=== PATIENT | female | born 2000 | race Caucasian/White ===

== ENCOUNTER 2024-05-04 12:52 | Emergency (ER) | payer SELFPAY ==
[2024-05-04 12:57] VITALS: BP 122/89; PULSE 90; RESP 14; TEMP 37.1; O2SAT 96; BMI 29.2
--- NOTE | 2024-05-04 13:25 | ED_ITS ---
HPI - Back Pain/Injury 2 General: Chief Complaint: Back Pain/Injury Stated Complaint: abd pain, vomitting blood Time Seen by Provider: 05/04/24 13:09 Source: patient Mode of arrival: ambulatory Limitations: no limitations History of Present Illness: This patient presents to the emergency department because of mid back pain and ache he is. 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 She has undergone a couple of procedures as a child went up having indwelling Reyes for period time and then a urostomy and now has a suprapubic indwelling catheter that she uses for emptying her bladder when she feels that full. She denies any associated fevers today or in the last couple days but has had subjective chills. He states that the symptoms feel like that which she has had in the past when she has had kidney related infection. She is also had some mild congestion and cold symptoms. She states she has been not been successful in eating or drinking because she becomes nauseated when she attempts to do so. She denies any associated abdominal pain. She denies any recent travel, recent antibiotic use, history of food intolerance etc. Had no associated back injury lifting etc. Similar Symptoms Previously: Yes Quality: dull and aching Exacerbating factors: none Associated symptoms: Reports chills, nausea and vomiting; Deny abdominal pain or fever(s) Review of Systems 2 Const: Reports: chills and body aches; Denies: fever(s) Eyes: Denies: change in vision ENMT: Reports: nasal congestion; Denies: throat pain or odynophagia Card: Denies: chest pain Resp: Denies: dyspnea, productive cough or non-productive cough GI: Reports: nausea and vomiting; Denies: abdominal pain or diarrhea : Reports: flank pain Musc: Reports: back pain Skin/Breast: Denies: rash Neuro: Denies: headache(s), numbness in extremities or weakness in extremities Physical Exam 2 Narrative: EXAM NARRATIVE: She is alert and appears to be in no acute distress. He answers questions in a goal-directed fashion. Const: COMMON NORMALS: no acute distress, average body habitus, patient oriented x3 and healthy appearing GENERAL APPEARANCE: cooperative and comfortable HENMT: COMMON NORMALS: normocephalic, Normal nasal mucous membranes and turbinates present, moist oral mucous membranes and oropharynx normal HEAD & SCALP: normocephalic NOSE: Normal nasal mucous membranes and turbinates present Eye: COMMON NORMALS: Equal, round and reactive pupils present, EOMs intact bilaterally and conjunctivae normal CONJUNCTIVA: Yes conjunctivae normal P UPIL: Yes Equal, round and reactive pupils present Neck/C-Spine: COMMON NORMALS: full ROM, no lymphadenopathy and supple Chest: COMMONS NORMALS: normal inspection of the chest Resp: COMMON NORMALS: normal respiratory effort, No retractions and clear to auscultation bilaterally AUSCULTATION: clear to auscultation bilaterally Cardio: COMMON NORMALS: regular rate, regular rhythm, No murmurs present (Cardio) and Peripheral pulses 2+ throughout RATE: regular rate RHYTHM: r egular rhythm PERIPHERAL PULSES: Peripheral pulses 2+ throughout GI: COMMON NORMALS: Normal to inspection, nondistended, normoactive bowel sounds present, Soft to palpation, non-tender and no masses PALPATION: Yes Soft to palpation OTHER: She has a indwelling catheter placed infraumbilically. No erythema drainage etc. : BLADDER/KIDNEY EXAM: Yes CVA tenderness (Right greater than left) Back/Pelvis: COMMON NORMALS: thoracic and lumbar spine normal to inspection GENERAL BACK: Yes CVA tenderness (Right greater than left) Extremity: COMMON NORMALS: normal to inspection, full ROM and capillary refill normal Neuro: COMMON NORMALS: patient oriented x3, moves all extremities and no focal motor deficits Psych: COMMON NORMALS: mental status grossly normal and cooperative Skin: COMMON NORMALS: no rashes or lesions noted, no wounds and turgor normal GENERAL SKIN EXAM: no rashes or lesions noted and turgor normal Course 2 Reevaluation(s): Reevaluation #1: Patient's doing well. No new or focal findings. We discussed her current findings and suggestion that likely lower urinary tract infections the etiology to her current presentation. She also has a slight bump in her transaminases but I do not have any compared tors at this time. We discussed expected course and return precautions. Time: 16:57 Vital Signs: Vital signs: Vital Signs Temperature 98.8 F 05/04/24 12:57 Pulse Rate 94 05/04/24 15:31 Respiratory Rate 14 05/04/24 12:57 Blood Pressure 116/80 05/04/24 15:31 Pulse Oximetry 100 05/04/24 15:31 Oxygen Delivery Me thod Room Air 05/04/24 12:57 MDM - Back Pain/Injury Medical Decision Making This patient with a known history of past urinary tract infections with perturbations and normal anatomy requiring multiple procedures in the past with her urinary excretion being maintained by a indwelling suprapubic catheter that she empties as needed. Had back pain and malaise and other subjective feelings suggestive of urinary tract infection. Clinical exam was nonfocal and unrevealing for any obvious signs of serious illness. Differential included possible urinary tract infection as the likely cause given her history and clinical exam which makes a musculoskeletal etiology unlikely. She has had no history of nephrolithiasis and she is not having colicky pain suggestive of that condition. Urinalysis did reveal evidence of infection. She has preserved renal function. She received a loading dose of Rocephin in the emergency department and will plan on continuing antibiotics for 1 week. We discussed return precautions and close follow-up. She voiced understanding. Labs I reviewed the patient's lab results. 05/04/24 14:25 05/04/24 14:25 Laboratory Results WBC 6.45 10^3/uL (3.29-11.43) 05/04/24 14:25 RBC 4.42 10^6/uL (3.85-5.65) 05/04/24 14:25 Hgb 12.70 g/dL (11.27-16.99) 05/04/24 14:25 Hct 38.3 % (36-47) 05/04/24 14:25 MCV 86.7 fl (85-98) 05/04/24 14:25 MCH 28.7 pg (27-33) 05/04/24 14:25 MCHC 33.2 g/dL (30-55) 05/04/24 14:25 RDW 13.3 % (12.1-15.1) 05/04/24 14:25 Plt Count 252 10^3/cmm (157-399) 05/04/24 14:25 MPV 9.8 fL (7.4-10.4) 05/04/24 14:25 Neut % (Auto) 62.1 % 05/04/24 14:25 Lymph % (Auto) 22.2 % 05/04/24 14:25 Reagan % (Auto) 13.8 % 05/04/24 14:25 Eos % (Auto) 0.9 % 05/04/24 14:25 Baso % (Auto) 0.8 % 05/04/24 14:25 Neut # (Auto) 4.01 10^3/uL (1.8-7.7) 05/04/24 14:25 Lymph # (Auto) 1.4 10^3/uL (0.8-4.8) 05/04/24 14:25 Reagan # (Auto) 0.9 10^3/uL (0.2-0.9) 05/04/24 14:25 Eos # (Auto) 0.1 10^3/uL (0.0-0.8) 05/04/24 14:25 Baso # (Auto) 0.1 10^3/uL (0.0-0.1) 05/04/24 14:25 Nucleated RBC % (auto) 0 % 05/04/24 14:25 Nucleated RBCs # 0.0 /100WBC 05/04/24 14:25 Sodium 135 mmol/L (136-145) L 05/04/24 14:25 Potassium 3.7 mmol/L (3.5-5.1) 05/04/24 14:25 Chloride 101 mmol/L (98-107) 05/04/24 14:25 Carbon Dioxide 23 mmol/L (22-29) 05/04/24 14:25 Anion Gap 14.7 (5-19) 05/04/24 14:25 BUN 7 mg/dL (6-20) 05/04/24 14:25 Creatinine 0.5 mg/dL (0.5-0.9) 05/04/24 14:25 GFR Calculation 150.3 mL/min (90-130) H 05/04/24 14:25 Glucose 84 mg/dL (65-115) 05/04/24 14:25 Calculated Osmolality 277 mOsm/kg (285-295) L 05/04/24 14:25 Calcium 9.2 mg/dL (8.5-10.5) 05/04/24 14:25 Total Bilirubin 0.3 mg/dL (0.15-1.2) 05/04/24 14:25 AST 29 U/L (0-32) 05/04/24 14:25 ALT 49 U/L (0-33) H 05/04/24 14:25 Alkaline Phosphatase 109 U/L (35-105) H 05/04/24 14:25 Total Protein 7.5 g/dL (6.6-8.7) 05/04/24 14:25 Albumin 4.3 g/dL (3.5-5.2) 05/04/24 14:25 Globulin 3.2 g/dL (1.3-4.6) 05/04/24 14:25 Lipase 22 U/L (13-60) 05/04/24 14:25 HCG, Qual Negative (Negative) 05/04/24 13:46 Urine Color Yellow (Yellow) 05/04/24 13:46 Urine Appearance Slightly cloudy (CLEAR) 05/04/24 13:46 Urine pH 7 (5-7) 05/04/24 13:46 Ur Specific Blanchard 1.005 (1.005-1.030) 05/04/24 13:46 Urine Protein 1+ (Negative) H 05/04/24 13:46 Urine Glucose (UA) Norm (Normal) 05/04/24 13:46 Urine Ketones 1+ (Negative) H 05/04/24 13:46 Urine Blood 2+ (Negative) H 05/04/24 13:46 Urine Nitrate Negative (Negative) 05/04/24 13:46 Urine Bilirubin Neg (Negative) 05/04/24 13:46 Urine Urobilinogen Norm mg/dL (Negative) 05/04/24 13:46 Ur Leukocyte Esterase 2+ (Negative) H 05/04/24 13:46 Urine RBC 0-4 /hpf (0-2) H 05/04/24 13:46 Urine WBC 25-40 /hpf (0-5) H 05/04/24 13:46 Ur Squamous Epith Cells 0-4 /hpf (0-5) H 05/04/24 13:46 Amorphous Sediment Not Reportable 05/04/24 13:46 Urine Bacteria 2+ /hpf (NONE) H 05/04/24 13:46 Urine Mucus 1+ /hpf 05/04/24 13:46 No radiology studies performed this visit Discharge Plan Discharge Patient Disposition: Home Clinical Impression: Urinary tract infection Qualifiers: Urinary tract infection type: site unspecified Hematuria presence: with hematuria Qualified Code(s): N39.0 - Urinary tract infection, site not specified Condition: Stable Prescriptions: New cephalexin 500 mg capsule 500 mg PO Q8H 7 Days Qty: 21 0RF ondansetron 4 mg tablet,disintegrating 4 mg PO Q8H PRN (Reason: nausea and vomiting) 4 Days Qty: 20 0RF No Action No Known Home Medications Discharge Orders: Discharge ED (Routine); Ordered 05/04/24 Ordered By: Gabe Arshad Discharge Diet: Usual diet Discharge Activity: Increase activity as tolerated Patient Instructions: Opioid Safety, Pain Management Activity Restrictions/Additional Instructions: As we discussed while you are in the emergency department you have evidence today that you have a kidney or urinary tract infection. Your kidney function is normal. We have prescribed an antibiotic to take for the next week as well as some medication to help with nausea and vomiting. You should drink at least 1 to 2 quarts of water daily. If you do not start to see some improvement in 48 to 72 hours, you are worse, you unable to tolerate the medications or have other new or concerning symptoms return to this or the nearest emergency department for reevaluation. Coding Level of Care Code ED Typesetter Perforator Operator for Ophelia Martinez
[2024-05-04] MEDS: ondansetron 2 mg/ML SDV 2 mL 4 MG IVP (13:48)
[2024-05-04] MEDS: lactated ringers 1,000 ML 999 ML IV (13:48)
[2024-05-04 14:20] LABS: HCG Qualitative Urine. Negative (Negative)
[2024-05-04 14:35] LABS: Basophils # 0.1 10^3/uL (0.0-0.1); Basophils % 0.8 %; Eosinophils # 0.1 10^3/uL (0.0-0.8); Eosinophils % 0.9 %; Hematocrit 38.3 % (36-47); Lymphocytes # 1.4 10^3/uL (0.8-4.8); Lymphocytes % 22.2 %; Mean Corpuscular HGB Conc 33.2 g/dL (30-55); Mean Corpuscular Hemoglobin 28.7 pg (27-33); Mean Corpuscular Volume 86.7 fl (85-98); Mean Platelet Volume 9.8 fL (7.4-10.4); Monocytes # 0.9 10^3/uL (0.2-0.9); Monocytes % 13.8 %; Neutrophils # 4.01 10^3/uL (1.8-7.7); Neutrophils % 62.1 %; Nucleated Red Blood Cells % 0 %; Platelet Count 252 10^3/cmm (157-399); Red Blood Count 4.42 10^6/uL (3.85-5.65); Red Cell Distribution Width 13.3 % (12.1-15.1); White Blood Count 6.45 10^3/uL (3.29-11.43)
[2024-05-04 14:48] LABS: Bilirubin Urine Neg (Negative); Blood Urine 2+ (Negative); Glucose Urine UA Norm (Normal); Ketones Urine 1+ (Negative); Nitrate Urine Negative (Negative); Protein Urine 1+ (Negative); Specific Gravity, Urine 1.005 (1.005-1.030); Urine Appearance Slightly Cloudy (CLEAR); Urine Color Yellow (Yellow); pH Urine 7 (5-7)
[2024-05-04 14:49] LABS: Add Urine Culture? Yes; Add Urine Microscopic? YES; Bacteria Urine 2+ /hpf; Leukocyte Esterase Urine 2+ (Negative); Mucus Urine 1+ /hpf; RBC Urine 0-4 /hpf (0-2); Squamous Epithelial Cell Urine 0-4 /hpf (0-5); Urobilinogen Urine Norm (Negative); WBC Urine 25-40 /hpf (0-5)
[2024-05-04 14:54] LABS: Alanine Aminotransferase 49 U/L (0-33); Albumin Level 4.3 g/dL (3.5-5.2); Alkaline Phosphatase 109 U/L (35-105); Anion Gap 14.7 (5-19); Aspartate Amino Transferase 29 U/L (0-32); Blood Urea Nitrogen 7 mg/dL (6-20); Calcium 9.2 mg/dL (8.5-10.5); Carbon Dioxide 23 mmol/L (22-29); Chloride 101 mmol/L (98-107); Creatinine Clr Calc Pharmacy 172.8665; Globulin 3.2 g/dL (1.3-4.6); Glomerular Filtration Rate 150.3 mL/min (90-130); Glucose 84 mg/dL (65-115); Lipase 22 U/L (13-60); Osmolality Calculated 277 mOsm/kg (285-295); Potassium 3.7 mmol/L (3.5-5.1); Sodium 135 mmol/L (136-145); Total Bilirubin 0.3 mg/dL (0.15-1.2); Total Protein 7.5 g/dL (6.6-8.7)
[2024-05-04 15:31] VITALS: BP 116/80; PULSE 94; O2SAT 100
[2024-05-04] MEDS: cefTRIAXone 2,000 mg SDV 2000 MG IVP (15:59)
[2024-05-04 17:19] VITALS: BP 116/80; PULSE 100; O2SAT 98
[2024-05-04] MEDS: acetaminophen 325 mg Tablet 650 MG PO (17:19)
== END 2024-05-04 17:20 | disposition home or self-care (01) ==
PROVIDERS: Emergency Provider Emergency Medicine
DX: N39.0 Urinary tract infection, site not specified (principal); R31.9 Hematuria, unspecified
CPT/HCPCS: 36415; 80053; 81001; 81025; 83690; 85025; 87077; 87086; 87186; 96365; 96375; 99284; J0696; J2405; J7120